=== PATIENT | female | born 1990 | race Two or more races ===

== ENCOUNTER 2025-04-25 17:28 | Emergency (ER) | payer MEDICAID, SELFPAY ==
[2025-04-25] VITALS (9 sets, daily range): BP systolic 116–146; BP diastolic 69–87; PULSE 79–98; RESP 16–25; TEMP 36.9–37.4; O2SAT 100; BMI 33.0
--- NOTE | 2025-04-25 18:06 | PD.EDRECHK ---
ED Recheck Abnl Lab Rx-RME/HPI General Chief Complaint: Recheck/Abnormal Lab/Rx Stated Complaint: RBC's is 4.5, dizzy and lightheaded Time Seen by Provider: 04/25/25 17:35 Arrival date/time: 04/25/25 17:28 34-year-old female patient came in for evaluation regarding anemia. Patient apparently went to PCP and was advised to go to emergency room for a hemoglobin of 4.5. Currently patient is complaining of easy fatigability, dizziness that comes and goes, and lack of energy. Denies any vomiting blood denies any blood in the stool denies any black-colored stool denies any heavy menstruation except that 3 years ago she had a delivery with general and she lost a lot of blood according to her. Denies any abdominal pain denies any chest pain. Related Data Allergies Allergy/AdvReac Type Severity Reaction Status Date / Time No Known Allergies Allergy Verified 04/25/25 18:49 Review of Systems Review of Systems Narrative Review of Systems: Review of system reviewed and within normal limits except mentioned in HPI ED Exam Narrative Physical exam: VITAL SIGNS: Reviewed. GENERAL APPEARANCE: Alert and interactive, follows commands, no acute distress, HEAD AND FACE: Non-traumatic. ENT: PERRL, pale conjunctiva, eyelid no trauma, Mucous membrane moist. NECK: Supple, nontender, no nuchal rigidity. CHEST: No tenderness, no crepitus, no paradoxical movement, no retractions. LUNGS: Clear, well ventilated, symmetric, no rales, no wheezing, no ronchi, no stridor, good breath sounds bilaterally. HEART: Regular rate, regular rhythm, no murmur, no gallops. ABDOMEN: Soft, positive bowel sounds, nondistended, no guarding, nontender, no rebound, no masses, RECTAL: Deferred. GENITAL: Deferred. NEUROLOGICAL: Gross motor function intact sensory function intact, Appropriate for age. MUSCULOSKELETAL: low back nontender, full range of motion. EXTREMITIES: Nontender, full range of motion. SKIN: Color pale, dry, no rash, no lacerations, no abrasions, no contusions. LYMPHATICS: Deferred. Course Quality Measures none Orders Category Date Time Status Occult Blood,Stool (Nursing) ONCE Care 04/25/25 18:04 Active Transfuse,blood/blood products ONCE Care 04/25/25 19:10 Active CBC Stat Lab 11/08/25 18:21 Completed Comprehensive Metabolic Panel Stat Lab 04/25/25 18:21 Completed Path Review Blood Smear Stat Lab 04/25/25 18:21 Completed Prothrombin Time with INR Stat Lab 04/25/25 18:21 Completed Type and Screen Stat Lab 04/25/25 18:21 Results Urinalysis Stat Lab 04/25/25 15:25 Completed prbc [Red Blood Cells] Stat Lab 04/25/25 18:21 Results Vital Signs Vital signs: Vital Signs Temperature 99.3 F 04/25/25 18:09 Pulse Rate 98 04/25/25 18:09 Respiratory Rate 16 04/25/25 18:09 Blood Pressure 126/81 04/25/25 18:09 Pulse Oximetry (%) 100 04/25/25 18:09 Oxygen Delivery Method Room Air 04/25/25 18:09 Recheck / Abnormal Lab / Rx MDM Narrative MDM Narrative:: 34-year-old female patient came in for evaluation regarding anemia. Patient apparently went to PCP and was advised to go to emergency room for a hemoglobin of 4.5. Currently patient is complaining of easy fatigability, dizziness that comes and goes, and lack of energy. Denies any vomiting blood denies any blood in the stool denies any black-colored stool denies any heavy menstruation except that 3 years ago she had a delivery with general and she lost a lot of blood according to her. Denies any abdominal pain denies any chest pain. Patient CBC was noted to be 5.0, hematocrit of 20.6 platelet is normal. Rest of the labs unremarkable. Patient refused rectal exam for occult blood. She told me that her stool is normal looking. Patient received 2 units of packed RBC. No complication noted. Patient data External records reviewed:: None Clinical information provided by:: patient and family Social determinants that could affect healthcare access:: none Patient has the following chronic illnesses:: History of anemia How is presenting disease/condition affected by chronic disease/condition?: exacerbated by Evaluation data The following diagnostics were reviewed and interpreted by me:: lab results Lab and/or radiology exams considered but not ordered:: None Interpretation Summary: See results MDM Medications / Prescriptions Medications or Prescriptions considered but not ordered:: None Medication administrations:: 2 units of RBC Consultations Consultation(s) initiated? (list below): No Diagnosis Recheck Differential Diagnosis: other (Anemia, iron deficiency anemia,) Most likely diagnosis given after review of the tests above:: anemia Admission Indicated Admission indicated?: not indicated Explain why admission is indicated or not indicated:: Stable Admission Request Was there a request for admission?: No Disposition Plan Disposition Plan: Discharge Discharge Attestation Discharge Attestation: The patient and all family members were given an opportunity to ask questions and understood the discharge instructions. Discharge instructions specifically effects, indications for sooner follow up or return to the emergency department, and the expected course of current diagnosis. Patient condition: Stable Discharge Plan Plan Patient Disposition: HOME (Self Care) Discharge Disposition comment: Stable Prescriptions/Referrals Referrals: No Primary/Family,Physician [Primary Care Provider] - In 1 week Problem List Clinical Impression: Anemia Patient/Caregiver Discharge Instructions Discharge Activity: activity as tolerated Education Materials: Anemia Additional Instructions: Thank you for the opportunity for serving you today. You are stable for discharged . You are advised to: Follow-up with your PCP in 1 to 2 days Return to ED for worsening of symptoms Print Language: Kinyarwanda Stand Alone Forms: Lanette Award Info., Patient Portal Info Letter
[2025-04-25 18:36] LABS: Collection Type, Urine Clean Catch
[2025-04-25 18:40] LABS: Basophils # (Auto) 0.1 Thou/mm3 (0.0-0.2); Basophils % (Auto) 0 % (0-2.5); Eosinophils # (Auto) 0.1 Thou/mm3 (0.0-0.5); Eosinophils % (Auto) 0 % (0-10); Hematocrit 20.6 % (36.0-46.0); Immature Granulocytes Auto 0.06 Thou/mm3 (0.00-0.00); Lymphocytes # (Auto) 2.3 Thou/mm3 (1.0-4.8); Lymphocytes % (Auto) 17 % (10-50); Mean Corpuscular HGB Conc 24.3 g/dl (31.0-37.0); Mean Corpuscular Hemoglobin 15.0 pg (25.0-35.0); Mean Corpuscular Volume 62 fL (80-100); Monocytes # (Auto) 0.7 Thou/mm3 (0.0-0.8); Monocytes % (Auto) 5 % (0-12); Neutrophils # (Auto) 10.6 Thou/mm3 (1.8-7.7); Neutrophils % (Auto) 77 % (37-80); Nucleated Red Blood Cell # 0.03 Thou/mm3 (0.00-0.00); Nucleated Red Blood Cell % 0 /100 WBC (0); Platelet Count 439 Thou/mm3 (140-440); RDW Standard Deviation 47.8 fL (36.4-46.3); Red Blood Count 3.33 Miln/mm3 (4.00-5.20); White Blood Count 13.8 Thou/mm3 (3.6-11.0)
[2025-04-25 18:48] LABS: Hemoglobin 5.0 g/dL (12.0-16.0)
[2025-04-25 19:00] LABS: INR 1.0 (0.9-1.3); Prothrombin Time 10.6 Seconds (9.0-12.2)
[2025-04-25 19:07] LABS: Alanine Aminotransferase 12 U/L (10-49); Albumin, Serum 4.9 gm/dL (3.5-5.0); Albumin/Globulin Ratio 2.1 (1.2-2.2); Alkaline Phosphatase 68 U/L (46-116); Anion Gap 12 (7-16); Aspartate Amino Transferase 23 U/L (0-34); BUN/Creatinine Ratio 13 Ratio (12-20); Bilirubin,Total 0.6 mg/dL (0.3-1.2); Blood Urea Nitrogen 8 mg/dL (9-23); Calcium 9.0 mg/dL (8.3-10.6); Calcium (Corrected) 9.0 mg/dL (8.5-10.1); Carbon Dioxide 20.4 mMol/L (20.0-31.0); Chloride 108 mMol/L (98-107); Creatinine (Component) 0.6 mg/dL (0.6-1.3); Estimated Creatinine Clearance 133.7 mL/min (>60); Globulin 2.3 gm/dL (2.3-3.5); Glucose 104 mg/dL (74-106); Osmolality,Calculated 277 (275-295); Potassium 3.8 mMol/L (3.4-5.1); Sodium 140 mMol/L (136-145); Total Protein 7.2 gm/dL (5.7-8.2); eGFR > 60 See Note
[2025-04-25 19:08] LABS: Bacteria,Urine Rare; Bilirubin,Urine Negative (Negative); Blood,Urine Negative (Negative); Clarity,Urine Clear (Clear/Hazy); Color,Urine Colorless (Lt Yel-Yel); Glucose, Urine Negative (Negative); Ketones,Urine Negative (Negative); Leukocyte Esterase,Urine Positive (Negative); Nitrite,Urine Negative (Negative); PH,Urine 6.5 (5.0-7.0); Protein,Urine Negative (Neg - Trace); RBC,Urine 2 /hpf (0-3); Specific Gravity,Urine 1.007 (1.001-1.035); Squamous Epithelial Cell,Urine 7 /hpf (0-5); Urobilinogen,Urine Negative mg/dL (0.0-1.0); WBC,Urine 1 /hpf (0-5)
[2025-04-25 20:08] LABS: Path Review Blood Smear Sent to Pathologist
[2025-04-26 00:57] VITALS: BP 123/77; PULSE 93; RESP 19; TEMP 36.6; O2SAT 100
[2025-04-26 01:49] VITALS: BP 131/79; PULSE 87; RESP 18; TEMP 37.3; O2SAT 100
== END 2025-04-26 02:00 | disposition home or self-care (01) ==
PROVIDERS: Nurse Practitioner Family; Emergency Provider Emergency Medicine
DX: D64.9 Anemia, unspecified (principal)
CPT/HCPCS: 36415; 36430; 80053; 81001; 85025; 85610; 86850; 86900; 86901; 86923; 99283; P9016